=== PATIENT | male | born 1945 | race Caucasian/White ===

== ENCOUNTER → 2018-02-15 | Outpatient (CLI) | payer OTHER ==
[~2018-02-15] VITALS: Ht 185.4 cm; Wt 115.2 kg
[~2018-02-15] MED LIST: ASPIR 8181 MG PO; FLOMAX0.4 MG PO; LISINOPRIL5 MG PO; NEURONTIN 300300 M1 PO; TOPROL XL25 MG PO; VITAMIN B-121000 MCG PO
[2018-02-15 10:29] VITALS: BP 132/75
[2018-02-15 10:36] VITALS: BP 132/75
[2018-02-15 10:43] LABS: HEMATOCRIT 38.1 % (42.0-52.0); MCH 34.5 pg (26.0-34.0); MCHC 34.2 g/dL (28.0-37.0); MCV 100.9 fL (80.0-100.0); RBC 3.78 mil/uL (4.50-6.00); RDW 14.4 % (10.5-14.5); WBC 5.1 thou/uL (4.0-11.0)
[2018-02-15 10:52] LABS: CALCIUM 9.4 mg/dL (8.5-10.1); CREATININE 1.2 mg/dL (0.7-1.3); POTASSIUM 4.1 mmol/L (3.5-5.1)
--- NOTE | 2018-02-15 13:23 | EKG ---
[place] [address] [facility] [place] [address] ELECTROCARDIOGRAM REPORT Name: NEL QUIGLEY Room #: REG [facility]#: [id number] Admission: 02/15/18 Attend Phys: Fransico Lauren Discharge: Date of : 45 Report #: [id number] THIS REPORT FOR: //name// [facility] [place] [facility] Test Date: 2018-02-15 Test Time: 10:20:18 Pat Name: NEL QUIGLEY Department: Room: Gender: Force Variation Equipment Tender: Carmine GUZMÁN : 1945 Requested By: Fransico Lauren Order Number: [id number] MD: Alek Soni Measurements Intervals [place] Rate: 85 P: 38 [place]: 193 QRS: 39 QRSD: 84 T: 178 QT: 396 QTc: 471 Interpretive Statements Sinus rhythm Abnormal R-wave progression, early transition Repol abnrm, prob ischemia, anterolateral lds No previous ECG available for comparison Electronically Signed On 02-15-2018 13:23:32 CUSTOM LEATHER PRODUCTS MAKER by Alek Soni [email or web address] <ELECTRONICALLY SIGNED> By: Alek Soni MD 02/15/18 1323 1020 1020 Alek Soni MD /GOMEZ
--- NOTE | 2018-02-15 16:14 | CATHLAB ---
[facility] [place] [address] INVASIVE PROCEDURE REPORT Name: NEL QUIGLEY Room #: REG [facility] [id number] Admission: 02/15/18 Attend Phys: Fransico Kramer Discharge: Date of : 45 Date of Service: 02/15/18 1614 Report #: [id number] THIS REPORT FOR: //name// APPROVED REPORT Study performed: 02/15/2018 09:53:57 Patient Details Patient Status: Out-Patient Room #: The patient is a 72 year-old male Event Personnel Fransico Lauren Newscast Director, Levon Metzger Tharp, Cori RN RN, Debra Mares Monitor Procedures Performed Art Access - R femoral artery* 85975 Initial Mod Sed Same Phys/QHP Gr5y 984301 Left Heart Cath w/or w/o Coronaries [id number] [facility] Aortogram Abdominal Peripheral Angio 578788 Hemostasis with Manual pressure supervision of conscious sedation Indication Positive stress test, Chest pain Procedure Narrative The Right Groin^ was infiltrated with 1% Lidocaine subcutaneous anesthesia. A PINNACLE 4FR Sheath #[id number] sheath was inserted into the RFA^. Coronary angiography was performed using coronary diagnostic catheters. The right coronary system was accessed and visualized with a jr4 catheter. The left coronary system was accessed and visualized with a jl4 catheter. The left ventricle was accessed and visualized with a angle pig catheter. An aortogram of the abdominal aorta was performed. The patient tolerated the procedure well and there were no complications associated with the procedure. There was no hematoma. Fluoroscopic visualization demonstrated evidence of at least moderate epicardial coronary artery calcifications Intraoperative Conscious Sedation Versed 2 mg Fluoro Time: 4.23 minutes Dose: DAP 8016.60 cGycm2 870 mGy Coronary Angiography [facility] [address] [place] [address] INVASIVE PROCEDURE REPORT Name: NEL QUIGLEY Room #: [facility]#: [id number] Admission: 02/15/18 Attend Phys: Fransico Kramer Discharge: Date of : 45 Date of Service: 02/15/18 1614 Report #: [id number] The patient's coronary anatomy is right dominant. Diagnostic Cath Left Main Normal origin moderate to large caliber with luminal irregularities with no high-grade lesions noted. Bifurcates left anterior descending left circumflex coronary artery LAD Moderate caliber type II vessel which is calcified epicardial E proximally. It then continues tapering in the anterior interventricular sulcus terminating as a bifurcating vessel at the apex of the left ventricle. In its course is moderate to mild luminary irregularities noted. The moderate is in the distal third and is at a hinge point Diagonal 1 Small-caliber vessel without high-grade obstructive lesion Circumflex Moderate caliber vessel which gives rise to an early first marginal branch. It then continues on with his a rapid 50% taper and calcifications noted epicardial E. Does not appear to have flow-limiting qualities. The vessel then continues on in the AV groove giving rise to a smaller second marginal branch and then continues posteriorly giving rise to a posterolateral wall branch. Prior to the origin there is a small section that appears to have a dynamic obstruction consistent with a myocardial bridge superimposed on a mild to moderate plaque. Does not impede flow OM1 Small caliber vessel without significant high-grade lesions OM2 Small-caliber vessel of short length luminal irregularities noted OM3 Small to moderate caliber vessel with luminary irregularities but no high-grade lesions Right Coronary Large-caliber vessel of normal origin with significant ectasia noted. There is moderate multiple regions of narrowing with evidence of heavy epicardial calcifications gives rise to small marginal RV marginal branches and then proceeds posteriorly giving rise to a small posterior descending artery and terminating as a small caliber posterior lateral branch. Comparing to the non-ectatic region there is one spot that appears to be greater than 60% stenosis but under 75% stenosis. The remaining regions appear to be at 50-60% without flow-limiting R PDA Small-caliber vessel coursing the AV groove towards the apex free of high-grade disease RPLV Small-caliber vessel along the posterior oral inferolateral wall without significant stenosis noted the courses towards the apex Left Ventriculography Left Ventriculography was not performed. Abdominal aortogram was [facility] [address] [place] [address] INVASIVE PROCEDURE REPORT Name: NEL QUIGLEY [place] Room #: [facility]#: [id number] Admission: 02/15/18 Attend Phys: Fransico Kramer Discharge: Date of : 45 Date of Service: 02/15/18 1614 Report #: [id number] performed due to difficulty advancing the wire through the common iliacs. This demonstrated some irregularities in the lumen but no high-grade lesions. There was a region of eccentricity but was not significantly obstructing flow Hemodynamics The aortic pressure is 147/82 mmHg with a mean of 110 mmHg. The left ventricular pressure is 147/18 mmHg with a mean of mmHg. Conclusion 1. Coronary artery disease moderate two-vessel involving the proximal right coronary artery and proximal as well as small segment and distal circumflex 2. Abnormal urinalysis with mildly elevated left ventricular end-diastolic pressures Recommendations Cardiac Risk Reduction Program Aggressive Medical Therapy <ELECTRONICALLY SIGNED> By: Fransico Lauren MD 02/15/18 1614 1614 1614 Fransico Lauren MD /INF
--- NOTE | 2018-02-15 19:58 | H ---
[facility] [place] [address] HISTORY AND PHYSICAL Name: NEL QUIGLEY Room #: REG [facility]#: [id number] Admission: 02/15/18 Attend Phys: Fransico Lauren Discharge: Date of : 45 Report #: [id number] THIS REPORT FOR: //name// CC: Levon Fuller FAM unknown Fransico Lauren HISTORY OF PRESENT ILLNESS: This pleasant gentleman was seen in the office for preop assessment due to abnormal electrocardiogram and risk factors prior to surgery. He underwent noninvasive assessment demonstrating abnormal perfusion scan consistent and suspicious for inducible ischemia. Now presents for cardiac catheterization. PHYSICAL EXAMINATION: GENERAL: Well-developed, well-nourished white male, resting comfortably in no acute distress. VITAL SIGNS: Noted in the chart. HEENT: Normocephalic, atraumatic. Pupils are equal, round, reactive to light and accommodation. Extraocular muscles are intact. Sclerae and conjunctivae are anicteric. NECK: JVD is normal. Carotid upstrokes are bilaterally symmetrical. No bruits are heard. No thyromegaly. No lymphadenopathy. LUNGS: Clear to auscultation. No wheezes, rhonchi or crackles. No CVA tenderness. CARDIAC: Demonstrates a regular rhythm. Normal first and second heart sounds. No ventricular or atrial gallops, no rubs noted. No murmurs. No lifts or heaves, PMI normal. ABDOMEN: Soft, nontender, nondistended. Normal bowel sounds. EXTREMITIES: Without cyanosis, clubbing or edema. Distal pulses are intact. DTR symmetrical. NEUROLOGIC: Cranial nerves 2-12 are grossly normal and symmetrical. PSYCHIATRIC: Alert, oriented with normal affect. SKIN: Warm and dry. IMPRESSION: Abnormal perfusion scan with risk factors prior to surgery. Discussed invasive diagnostic studies. The patient wished to proceed after the risks, complications, alternatives to cardiac catheterization, percutaneous revascularization, conscious sedation were discussed. <ELECTRONICALLY SIGNED> By: Fransico Lauren MD 02/15/18 1958 1043 1111 Fransico Lauren MD /nt
== END | disposition home or self-care (01) ==
LOC: CATH 09:29
PROVIDERS: Internal Medicine
DX: I25.10 Atherosclerotic heart disease of native coronary artery without angina pectoris (principal); R82.90 Unspecified abnormal findings in urine; I11.0 Hypertensive heart disease with heart failure; I50.1 Left ventricular failure, unspecified; G47.33 Obstructive sleep apnea (adult) (pediatric); E78.5 Hyperlipidemia, unspecified; Z95.5 Presence of coronary angioplasty implant and graft; Z98.890 Other specified postprocedural states; Z79.899 Other long term (current) drug therapy; Z87.891 Personal history of nicotine dependence; Z88.0 Allergy status to penicillin; Z79.82 Long term (current) use of aspirin

== ENCOUNTER 2018-02-20 05:31 | Inpatient (IN) | payer OTHER ==
[2018-02-01 13:34] LABS: HEMATOCRIT 36.9 % (42.0-52.0); HEMOGLOBIN 12.6 gm/dL (14.0-18.0); MCH 34.6 pg (26.0-34.0); MCHC 34.1 g/dL (28.0-37.0); MCV 101.3 fL (80.0-100.0); RBC 3.64 mil/uL (4.50-6.00); RDW 14.7 % (10.5-14.5); WBC 5.1 thou/uL (4.0-11.0)
[2018-02-01 13:35] LABS: URINE BILIRUBIN NEGATIVE (Negative); URINE BLOOD NEGATIVE (Negative); URINE CLARITY CLEAR; URINE COLOR YELLOW; URINE GLUCOSE-RANDOM* NEGATIVE (Negative); URINE KETONES NEGATIVE (Negative); URINE LEUKOCYTES-REFLEX NEGATIVE (Negative); URINE NITRITE-REFLEX NEGATIVE (Negative); URINE PROTEIN (DIPSTICK) NEGATIVE (Negative); URINE SPECIFIC GRAVITY 1.025 (1.005-1.035); URINE UROBILINOGEN 0.2 E.U./dl (0.2-1.0)
[2018-02-01 13:38] LABS: ALBUMIN 3.7 g/dL (3.4-5.0); CALCIUM 8.6 mg/dL (8.5-10.1); CREATININE 1.2 mg/dL (0.7-1.3); POTASSIUM 4.4 mmol/L (3.5-5.1)
[2018-02-01 13:49] LABS: INR 1.1
[~2018-02-20] VITALS: Ht 185.4 cm; Wt 113.4 kg
[2018-02-20 07:05] VITALS: BP 132/64
[2018-02-20 10:44] VITALS: BP 124/67
--- NOTE | 2018-02-20 11:41 | NUR ---
SET PATIENTS HOME CPAP UP AT BEDSIDE AND LEFT EXTRA WATER
--- NOTE | 2018-02-20 13:42 | NUR ---
RECEIVED PT FORM SURGERY. A/O. DENIES PAIN AT THIS TIME. NO NOTED SOA. NO NV. DRESSING TO RIGHT KNEE CDI. HEMOVAC IN PLACE. WILL CONT. TO MONITOR.
--- NOTE | 2018-02-20 15:37 | NUR ---
PT ADMITTED RELATED TO TOTAL RIGHT KNEE REPLACEMENT. CM REVIEWED CHART AND SPOKE WITH CARE TEAM. CM MET WITH PAT BEDSIDE THIS DAY. PT IS A&O X4. CM ROLE INTRODUCED. PT INDICATED HE LIVES IN A HOUSE WITH HIS SPOUSE WITH 1 STEP TO ENTER AND NO STEPS INSIDE. 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 PT INDICATED HE HAD A 4WW AND WILL NEED A FWW FOR USE UPON DC. PT INQUIRED ABOUT A SHOWER CHAIR AND CM INDICATED WHERE PT COULD AQUIRE ONE. CM TO PROVIDE INFO. PT IS ESTABLISHED WITH OP PT HERE AT [facility]. CM NOTIFIED PP LIAISON AND SHE WILL DELIVER FEE PTD. CM TO FOLLOW INDICATED WITH DC PLANNING.
[2018-02-20 16:26] VITALS: BP 138/64
[2018-02-20 21:00] VITALS: BP 127/62
--- NOTE | 2018-02-20 23:30 | NUR ---
PT C/O PAIN ON HIS R KNEE, MANAGED WITH PO PAIN MED.CONT ON IVF ORDERED.DRSG ON HIS R KNEE C/D/I WITH HEMOVAC IN PLACE.URINAL AT BEDSIDE.CPAP AT HS.PT BREATING NORMAL AND UNLABORED.PT ABLE TO PULL HIMSELF UP IN BED.CALL LIGHT WITHIN REACH.
[2018-02-21 05:42] VITALS: BP 115/60
[2018-02-21 05:54] LABS: HEMATOCRIT 30.4 % (42.0-52.0); HEMOGLOBIN 10.3 gm/dL (14.0-18.0); MCH 34.4 pg (26.0-34.0); MCV 101.4 fL (80.0-100.0); PLATELET COUNT 125 thou/uL (150-400); RBC 2.99 mil/uL (4.50-6.00); RDW 14.3 % (10.5-14.5); WBC 13.3 thou/uL (4.0-11.0)
[2018-02-21 06:01] LABS: CALCIUM 7.9 mg/dL (8.5-10.1); CREATININE 1.3 mg/dL (0.7-1.3); MAGNESIUM 1.7 mg/dL (1.8-2.4); POTASSIUM 4.5 mmol/L (3.5-5.1)
[2018-02-21 06:31] LABS: ABSOLUTE NEUTROPHILS 10.1 thou/uL (1.4-8.2)
[2018-02-21 06:32] LABS: ANISOCYTOSIS 2+; MACROCYTES 2+
[2018-02-21 06:33] LABS: PLATELET ESTIMATE DECREASED
[2018-02-21 07:06] VITALS: BP 118/59
--- NOTE | 2018-02-21 09:08 | NUR ---
ASSUMED CARE OF PT AT 0700. ASSESSMENT COMPLETED AND CHARTED. A&0,X4. HARD OF HEARING NOTED. PT SITTING IN BED, NO DISTRESS NOTED. C/O RIGHT KNEE PAIN POST OP, PAIN MEDS GIVEN ORDERED. NO OTHER CONCERNS AT THIS TIME. NO N/V/D. NO BM SINCE SURGERY, MEDS GIVEN ORDERED TO PROMOTE BM. NO PROBLEMS VOIDING. SURGICAL MAYNOR DRESSING IN PLACE RIGHT KNEE, HEMOVAC DRAIN IN PLACE - 575 SANGINOUS DRAINAGE NOTED. CALLED PHYSICIAN, INSTRUCTED TO NOTE DRAINAGE AMOUNT AND D/C DRAIN ORDERED. WILL CONTINUE TO MONITOR.
--- NOTE | 2018-02-21 14:00 | NUR ---
HEMOVAC DRAIN D/C ORDERED. 75 ML SANGINOUS DRAINAGE NOTED. PT TOLERATED PROCEDURE WELL. PT RATES RIGHT KNEE PAIN 3/10, REFUSES PAIN MEDS AT THIS TIMES. DENIES N/V. REPORT GIVEN TO S.S NURSE. PT TRANSFERED IN STABLE CONDITION VIA WHEELCHAIR WITH BELONGINGS - HOME CPAP MACHINE, WALKER X2, BRIEFCASE, CLOTHES, AND CELL PHONE.
[2018-02-21 15:00] VITALS: BP 123/63
--- NOTE | 2018-02-21 17:39 | O ---
[facility] [place] [address] OPERATIVE REPORT Name: NEL QUIGLEY Room #: 222-P ADM IN M.R.#: [id number] Admission: 02/20/18 Attend Phys: Levon Fuller MD Discharge: Date of : 45 Report #: [id number] THIS REPORT FOR: //name// CC: Levon WEBB DATE OF SERVICE: 02/20/2018 PREOPERATIVE DIAGNOSIS: End-stage degenerative osteoarthritis, right knee. POSTOPERATIVE DIAGNOSIS: End-stage degenerative osteoarthritis, right knee. PROCEDURE: Right total knee arthroplasty. SURGEON: Levon Fuller MD INDICATIONS: This 72-year-old gentleman is moderately heavy and deconditioned. He has moderate degenerative osteoarthritis of both knees. There is mild varus malalignment and significant joint space narrowing with mild spurring in all 3 compartments. He is most symptomatic on the right side. He has elected to go ahead with right total knee arthroplasty at this time. DESCRIPTION OF PROCEDURE: The patient was taken to the Operating Room where he was placed under general anesthesia. A femoral nerve block was also applied. Prophylactic intravenous antibiotics were administered. The right knee and leg were meticulously prepped and draped and a thigh tourniquet inflated to 300 mmHg. An anterior longitudinal skin incision was made and carried through the medial retinaculum, reflecting the patella laterally. Moderate degenerative change in all 3 compartments was noted. The Becker and Nephew knee system was utilized. The cuts were made using intramedullary guides on both the femur and the tibia. The femur seemed best suited for a size 6 femoral component. The tibia was also best suited for a size 6 tibial component. A trial reduction was performed and a 10 mm polyethylene insert resulted in full knee extension and flexion beyond 130 degrees with satisfactory stability on varus and valgus stress. Alignment appeared to be acceptable. The patellar surface was resected and a 35 mm patellar button fit nicely. Appropriate anchor holes were created. The surfaces were thoroughly irrigated and dried. The intramedullary canal was blocked with a bone block on both the femoral and tibial sides. Methyl methacrylate cement was mixed and injected into the porous surface of the tibia. The Becker and Nephew size 6 [place] II right tibial baseplate was then inserted. This was impacted into position and seated nicely. Excess cement was removed around its margin. A 10 mm Legion polyethylene insert was then inserted. This was snapped into position and seated nicely and appeared to be secure. The press-fit noncemented size 6 right cruciate retaining Legion femoral component was then inserted on to the distal femur and impacted into position. It seated nicely and appeared to be secure. The Chey[place] II patellar [address] [address] OPERATIVE REPORT Name: NEL QUIGLEY Room #: 222-P [facility] IN M.R.#: [id number] Admission: 02/20/18 Attend Phys: Levon Fuller MD Discharge: Date of : 45 Report #: [id number] component using a 35 mm size was secured to the patella using appropriate anchor holes and cement. A patellar clamp was utilized until the cement had hardened. All excess cement was removed from around the margin. Once the cement was secured, range of motion, alignment and stability were once again assessed and felt to be satisfactory. The knee demonstrated full knee extension and flexion well beyond 130 degrees with good stability on varus and valgus stress. The patella tracked nicely and appeared to be stable. At this point, the tourniquet was deflated after a total tourniquet time of 55 minutes. A single Hemovac was left in the wound exiting through a separate stab incision. The fascia was then closed with multiple #1 Vicryl sutures. The subcutaneous tissues were closed with 0 Monocryl and the skin was closed with skin sarkis. A sterile dressing was applied. The patient was awakened and returned to the Recovery Room in good condition. <ELECTRONICALLY SIGNED> By: Levon Fuller MD 02/21/18 1739 0902 0947 Levon Fuller MD /nt
[2018-02-21 20:39] VITALS: BP 123/63
--- NOTE | 2018-02-22 03:33 | NUR ---
Pt A/OX4. Up with AX1/RW,WBAT to RLE.C/o pain LOP 07/24,medicated with [place]/Percocet per EMAR with LOP reported @ 03/26. Ice provided as well.Voiding per urinal,light yellow clear urine. Declined to take miralax at HS had a BM in the evening. VSS. Michael rodriguez on refused SCD's. Resting quietly with CPAP in place no distress noted will continue to monitor pt.
[2018-02-22 06:48] LABS: HEMATOCRIT 31.1 % (42.0-52.0); HEMOGLOBIN 10.5 gm/dL (14.0-18.0); MCH 34.1 pg (26.0-34.0); MCHC 33.6 g/dL (28.0-37.0); MCV 101.6 fL (80.0-100.0); RBC 3.06 mil/uL (4.50-6.00); RDW 14.5 % (10.5-14.5); WBC 9.3 thou/uL (4.0-11.0)
[2018-02-22 08:33] VITALS: BP 136/74
[2018-02-22 17:17] VITALS: BP 126/94
--- NOTE | 2018-02-22 19:57 | NUR ---
ASSUMED CARE OF PATIENT AT 0715, PATIENT ALERT AND ORIENTED X 4. PATIENT UP WITH 1-2 ASSIST WITH WALKER. PATIENT C/O PAIN WITH RIGHT KNEE, PATIENT RECEIVED HYDROCODONE 1 TABLET THIS AM, AND PATIENT HAD OXYCODONE X 2 THIS SHIFT WITH GOOD RELIEF. PATIENT HAS RIGHT KNEE INCISON WITH MAYNOR DRESSING IN PLACE, PATIENT ALSO USES ICE PACK FOR PAIN RELIEF. PATIENT WORKED WITH PHYSICAL THERAPY/STEVE X 2. PATIENT HAD 2 LARGE BM'S THIS SHIFT. PATIENT HAS LEFT FOREARM IV IN PLACEM AND IS PATENT. WILL CONTINUE TO MONITOR.
[2018-02-22 21:00] VITALS: BP 126/94
--- NOTE | 2018-02-23 04:11 | NUR ---
Pt A/OX4,[place] and wears FAIR.Up with min assist of / from chair to bed. C/o pain to Right knee LOP 3/10,medicated with pain meds per EMAR with relief reported. Ice packs provided as well. VSS.MAYNOR dsg on right knee C/D/I. Resting quietly eyes closed CPAP in place with no distress noted. Held HS Miralax per pt request had 2 BM's yesterday. PIV patent on left forearm. Fall precautions implemented and call light within reach. Will continue to monitor pt.
[2018-02-23 06:59] LABS: HEMOGLOBIN 10.4 gm/dL (14.0-18.0); MCH 35.1 pg (26.0-34.0); MCHC 34.5 g/dL (28.0-37.0); MCV 101.9 fL (80.0-100.0); RBC 2.95 mil/uL (4.50-6.00); RDW 14.6 % (10.5-14.5); WBC 8.1 thou/uL (4.0-11.0)
[2018-02-23 07:45] VITALS: BP 124/63
--- NOTE | 2018-02-23 08:07 | D ---
[facility] [place] [address] DISCHARGE SUMMARY Name: NEL QUIGLEY Room #: 222-P [facility] IN ..#: [id number] Admission: 02/20/18 Attend Phys: Levon Fuller MD Discharge: Date of : 45 Report #: [id number] THIS REPORT FOR: //name// CC: Levon WEBB DATE OF SERVICE: 02/23/2018 FINAL DIAGNOSIS: End-stage degenerative osteoarthritis, right knee. OPERATIVE PROCEDURE: Right total knee arthroplasty. HISTORY OF PRESENT ILLNESS: This 72-year-old heavy gentleman, complains of progressive right knee pain. Clinical exam and x-rays confirm severe end-stage degenerative osteoarthritis. He has tried conservative measure without much benefit. He has elected to go ahead with right total knee arthroplasty. HOSPITAL COURSE: The patient was admitted and taken to the operating room on 02/20. He underwent right total knee arthroplasty, which he tolerated well. Postoperatively, his course was largely unremarkable. He is able to advance with physical therapy, resuming independent ambulation using a walker for safety. The right knee dressing seems to be dry and stable. He has been able to resume a regular diet. He has resumed his regular routine preoperative medications. He is working with therapy and has achieved satisfactory safety with independent ambulation. I feel he is ready for hospital discharge. DISCHARGE MEDICATIONS: Include aspirin 81 mg daily, gabapentin 300 mg 3 times daily, Flomax 0.4 mg daily, lisinopril 5 mg daily, vitamin B12 of 1000 mcg daily, metoprolol 25 mg daily, Xarelto 10 mg daily, hydrocodone 10 mg every 6 hours as needed. He is instructed to call if any problems or questions. He will continue with careful activity using his walker and family assistance at home. I will plan to see him in the office next week, and he will begin outpatient therapy. We will plan to see him again the following week for suture removal. <ELECTRONICALLY SIGNED> By: Levon Fuller MD 02/23/18 0807 0741 0758 Levon Fuller MD /nt
--- NOTE | 2018-02-23 12:25 | NUR ---
PATIENT CARE WAS ASSUMED AT 0715.PATIENT IS ALERT AND ORIENTED X4.PATIENT HAS PAIN 1/10 ON PAIN SCALE.PATIENT DOESN'T WANT MEDICATION AT THIS TIME.PATIENT HAS ICE PACKS AT BEDSIDE.TEDS ARE IN PLACE.PT HAS SCDS BUT ARE NOT ON AT THIS TIME.PATIENT IS SITTING IN CHAIR READY FOR BREAKFAST.IV IS INTACT AND SALINE LOCKED. PT IS WORKING WITH PT/OT.CALL LIGHT, PHONE, AND PERSONAL BELONGINGS ARE WITHIN REACH.WILL CONTINUE TO MONITOR PATIENT.
--- NOTE | 2018-02-23 12:55 | NUR ---
DISCHARGE PLANNING. POST ACUTE CARE RECOMMENDED AT DISCHARGE. REFERRAL FAXED TO [facility]IA[facility]. CALL PLACED TO NOTIFY OF REFERRAL FAXED AND PATIENTS DISCHARGE NEEDS. [facility] TO REVIEW CLINICAL INFORMATION AND CONTACT CM ONCE COMPLETE. FOLLOWING TO ASSIST.
--- NOTE | 2018-02-23 13:29 | NUR ---
Following for d/c planning needs. Pt may need SNF on d/c from hospital. Spoke with pt and gave him list of half-way facilities. He wants to go to [facility] as his first choice. Second choice would be [facility]. Asked environmental planner to make referral.
[2018-02-23 18:31] VITALS: BP 118/53
--- NOTE | 2018-02-23 21:55 | NUR ---
pt presents with a plesant affect,alert and oriented x 4 ,needs one person assist with adls ,uses a walker and a gait belt for transfers.continent of bowel and bladder,last reported bm is today,pain reported on the surgical right knee and has uilized pain meds. pt on noc cpap and with continous pulse oximetry monitoring.wears marisela hose,no complains of sob at this time.
--- NOTE | 2018-02-23 23:36 | EKG ---
[place] [address] [facility] [place] [address] ELECTROCARDIOGRAM REPORT Name: NEL QUIGLEY Room #: 222-P ADM IN M.R.#: [id number] Admission: 02/20/18 Attend Phys: Levon Fuller MD Discharge: Date of : 45 Report #: [id number] THIS REPORT FOR: //name// [facility] Test Date: 2018-02-23 Test Time: 19:00:35 Pat Name: NEL QUIGLEY Department: Room: 222 P Gender: M Nuclear Supervising Operator: LONNIE : 1945 Requested By: Rasta Qiu Order Number: [id number] MD: Alek Soni Measurements Intervals [place] Rate: 96 P: 39 OR: 187 QRS: 34 QRSD: 97 T: 191 QT: 343 QTc: 434 Interpretive Statements Sinus rhythm Abnormal R-wave progression, early transition Abnormal T, consider ischemia, diffuse leads Baseline wander in lead(s) II,III,aVR,aVL,aVF Compared to ECG 02/15/2018 10:20:18 T-wave abnormality now present Early repolarization no longer present Possible ischemia still present Electronically Signed On 02-23-2018 23:36:23 BANDAGE WINDING MACHINE OPERATOR by Alek Soni [email or web address] <ELECTRONICALLY SIGNED> By: Alek Soni MD 02/23/18 2336 99 99 Alek Soni MD /EPI
[2018-02-24 09:05] LABS: HEMATOCRIT 31.5 % (42.0-52.0); HEMOGLOBIN 10.9 gm/dL (14.0-18.0); MCH 35.1 pg (26.0-34.0); MCHC 34.7 g/dL (28.0-37.0); MCV 101.2 fL (80.0-100.0); RBC 3.11 mil/uL (4.50-6.00); RDW 14.8 % (10.5-14.5)
[2018-02-24 09:12] LABS: CALCIUM 8.8 mg/dL (8.5-10.1); CREATININE 1.1 mg/dL (0.7-1.3); MAGNESIUM 2.3 mg/dL (1.8-2.4); POTASSIUM 4.2 mmol/L (3.5-5.1)
--- NOTE | 2018-02-24 15:29 | NUR ---
PATIENT WAS D/C TO [facility]UR[facility].PATIENT HAS PERSONAL BELONGINGS.PAPERWORK WAS GIVEN TO TRANSPORTATION.IV WAS TAKEN OUT AND PATIENT WAS DRESSED.PT WAS PICKED UP VIA [facility].REPORT WAS CALLED TO NURSE AT [facility].
== END 2018-02-24 15:00 | DRG 469 ==
LOC: PRE → SICU 05:31 → TBA 05:31 → 4E 05:31 → PRE 05:56 → 4E 10:39 → PRE 11:07 → ENTRNSPT 02-21 14:46 → EDTRNSPTSTS 02-21 14:52 → SICU 02-21 15:04
PROVIDERS: Internal Medicine; Nurse Practitioner; ADMIT Orthopaedic Surgery
PROC: 0SRC0J9 Replacement of Right Knee Joint with Synthetic Substitute, Cemented, Open Approach (ICD-10-PCS; principal; 2018-02-20)
DX: M17.11 Unilateral primary osteoarthritis, right knee (principal); E43 Unspecified severe protein-calorie malnutrition; I10 Essential (primary) hypertension; E78.5 Hyperlipidemia, unspecified; N40.0 Benign prostatic hyperplasia without lower urinary tract symptoms; G47.33 Obstructive sleep apnea (adult) (pediatric); Z79.82 Long term (current) use of aspirin; Z79.899 Other long term (current) drug therapy; Z87.891 Personal history of nicotine dependence; Z88.0 Allergy status to penicillin
CPT/HCPCS: 10783; 15002; 50010; 50101; 50415; 50954; 51130; 51225; 51412; 53364; 56525; 57095; 62110; 62900; 70005

== ENCOUNTER → 2019-05-21 | Outpatient (CLI) | payer OTHER ==
[~2019-05-21] MED LIST changes: +REPATHA SU140 MG/1 M SUBQ
== END ==
LOC: SJCVC 10:11
PROVIDERS: ATTEND Internal Medicine
DX: E78.5 Hyperlipidemia, unspecified (principal)

== ENCOUNTER → 2019-07-31 | Outpatient (CLI) | payer OTHER | LOC: SJCVC 09:21 | PROVIDERS: ATTEND Internal Medicine | DX: I25.10 Atherosclerotic heart disease of native coronary artery without angina pectoris (principal); I10 Essential (primary) hypertension; E78.5 Hyperlipidemia, unspecified; E11.9 Type 2 diabetes mellitus without complications; M25.551 Pain in right hip; M25.552 Pain in left hip; M79.604 Pain in right leg; M79.605 Pain in left leg; Z78.9 Other specified health status; Z79.82 Long term (current) use of aspirin; Z79.899 Other long term (current) drug therapy; Z87.891 Personal history of nicotine dependence ==

== ENCOUNTER → 2019-08-03 | Outpatient (CLI) | payer OTHER | LOC: SJCVCIMAG 08:11 | PROVIDERS: ATTEND Internal Medicine | DX: I70.203 Unspecified atherosclerosis of native arteries of extremities, bilateral legs (principal); I10 Essential (primary) hypertension; E78.5 Hyperlipidemia, unspecified; F17.200 Nicotine dependence, unspecified, uncomplicated; Z79.82 Long term (current) use of aspirin; Z79.899 Other long term (current) drug therapy ==

== ENCOUNTER 2019-08-08 10:47 | Outpatient (CLI) | payer OTHER ==
[~2019-08-08] VITALS: Ht 185.4 cm; Wt 118.4 kg
[~2019-08-08 10:47] MED LIST changes: -REPATHA SU140 MG/1 M SUBQ
[2019-08-08 11:52] VITALS: BP 138/63
[2019-08-08] MEDS ORDERED: REPATHA SU140 MG/1 M SUBQ (12:07)
[2019-08-08 12:19] LABS: HEMATOCRIT 36.7 % (42.0-52.0); HEMOGLOBIN 12.5 gm/dL (14.0-18.0); MCV 103.1 fL (80.0-100.0); RBC 3.56 mil/uL (4.50-6.00); RDW 14.5 % (10.5-14.5); WBC 4.2 thou/uL (4.0-11.0)
[2019-08-08 12:28] LABS: CALCIUM 9.5 mg/dL (8.5-10.1); CREATININE 1.1 mg/dL (0.7-1.3); POTASSIUM 4.2 mmol/L (3.5-5.1)
[2019-08-08 18:26] VITALS: BP 129/63
[2019-08-08 20:24] VITALS: BP 129/63
--- NOTE | 2019-08-08 21:21 | NUR ---
DISCHARGE.: PATIENT DISCHARGED 2109, S/P CATH/ABDOMINAL AORTOGRAM. PT OFF BEDREST AT 2029. AO X4. VSS. DENIES CHEST PAIN, DENIES NAUSEA, VOMITING OR DIARRHEA. PULSES 2/1. DENIES NUMBNESS OR PAIN IN THE LOWER EXTREMITIES. GROIN SITES (R/L) CLEAR DRY AND INTACT. DR. BARTH NOTIFIED TO CLARIFY DISCHARGE ORDERS. PHYSICIAN UNABLE TO COMPLETE FULL ADMISSION ORDERS SINCE PATIENT WAS OBSERVATIONAL. WHEN NOTIFIED, STATED, " JUST GET HIM OUT OF HERE IS PATIENT IS STABLE." COMPLETED SECTIONS OF ADMISSION PRINTED, DISCHARGE SUMMARY GIVEN TO PATIENT WITH DISCHARGE INSTRACTIONS. NO NEW ORDERS NOTED ON PATIENT'S DICHARGE SUMMARY. ALL LISTED HOME MEDICATION VERIFIED BY PATIENT TO BE CURRENT. PT DISCHARGED HOME, PRIVATE VEHICLE WITH SPOUSE AT 2118. PT DISCHARGED IN STABLE CONDITION.
== END 2019-08-08 21:19 | disposition home or self-care (01) ==
LOC: CATH 10:47 → 2N 18:25 → CATH 21:19
PROVIDERS: ATTEND Nuclear Medicine Nuclear Cardiology
DX: I70.213 Atherosclerosis of native arteries of extremities with intermittent claudication, bilateral legs (principal); I70.1 Atherosclerosis of renal artery; I10 Essential (primary) hypertension; I25.10 Atherosclerotic heart disease of native coronary artery without angina pectoris; E78.5 Hyperlipidemia, unspecified; G47.30 Sleep apnea, unspecified; Z98.890 Other specified postprocedural states; Z79.899 Other long term (current) drug therapy; Z88.0 Allergy status to penicillin
CPT/HCPCS: 10081

== ENCOUNTER → 2019-09-26 | Outpatient (CLI) | payer OTHER ==
[~2019-09-26] MED LIST changes: +REPATHA SU140 MG/1 M SUBQ
== END ==
LOC: SJCVCIMAG 08-06 10:04
PROVIDERS: ATTEND Nuclear Medicine Nuclear Cardiology
DX: I70.203 Unspecified atherosclerosis of native arteries of extremities, bilateral legs (principal); I65.23 Occlusion and stenosis of bilateral carotid arteries

== ENCOUNTER → 2019-10-02 | Outpatient (CLI) | payer OTHER | LOC: SJCVC 11:03 | PROVIDERS: ATTEND Nuclear Medicine Nuclear Cardiology | DX: I73.9 Peripheral vascular disease, unspecified (principal); I10 Essential (primary) hypertension; E78.00 Pure hypercholesterolemia, unspecified; F17.200 Nicotine dependence, unspecified, uncomplicated; E78.5 Hyperlipidemia, unspecified; Z79.82 Long term (current) use of aspirin; Z79.899 Other long term (current) drug therapy; Z95.828 Presence of other vascular implants and grafts ==

== ENCOUNTER → 2020-02-18 | Outpatient (CLI) | payer OTHER | LOC: SJCVC 14:46 | PROVIDERS: ATTEND Internal Medicine | DX: R94.31 Abnormal electrocardiogram [ECG] [EKG] (principal); I25.10 Atherosclerotic heart disease of native coronary artery without angina pectoris; E11.51 Type 2 diabetes mellitus with diabetic peripheral angiopathy without gangrene; E78.5 Hyperlipidemia, unspecified; I10 Essential (primary) hypertension; Z79.82 Long term (current) use of aspirin; Z79.899 Other long term (current) drug therapy; Z79.84 Long term (current) use of oral hypoglycemic drugs; Z88.0 Allergy status to penicillin; Z88.8 Allergy status to other drugs, medicaments and biological substances ==

== ENCOUNTER → 2020-04-01 | Outpatient (CLI) | payer OTHER | LOC: SJCVCIMAG 08:19 | PROVIDERS: ATTEND Nuclear Medicine Nuclear Cardiology | DX: I65.23 Occlusion and stenosis of bilateral carotid arteries (principal); I70.203 Unspecified atherosclerosis of native arteries of extremities, bilateral legs; I77.9 Disorder of arteries and arterioles, unspecified; E78.00 Pure hypercholesterolemia, unspecified; I10 Essential (primary) hypertension; F17.200 Nicotine dependence, unspecified, uncomplicated; Z90.49 Acquired absence of other specified parts of digestive tract; Z88.0 Allergy status to penicillin; Z88.8 Allergy status to other drugs, medicaments and biological substances; Z79.82 Long term (current) use of aspirin; Z79.899 Other long term (current) drug therapy ==

== ENCOUNTER → 2020-08-13 | Outpatient (CLI) | payer OTHER | LOC: SJCVCIMAG 09:07 | PROVIDERS: ATTEND Internal Medicine | DX: I07.1 Rheumatic tricuspid insufficiency (principal); I73.9 Peripheral vascular disease, unspecified; I10 Essential (primary) hypertension; E78.00 Pure hypercholesterolemia, unspecified; I77.9 Disorder of arteries and arterioles, unspecified; I25.10 Atherosclerotic heart disease of native coronary artery without angina pectoris; Z79.82 Long term (current) use of aspirin; Z79.899 Other long term (current) drug therapy; Z87.891 Personal history of nicotine dependence ==

== ENCOUNTER → 2020-11-21 | Outpatient (CLI) | payer OTHER | LOC: SJCVCIMAG 10-21 08:57 | PROVIDERS: ATTEND Nuclear Medicine Nuclear Cardiology | DX: I65.23 Occlusion and stenosis of bilateral carotid arteries (principal); M79.604 Pain in right leg; M79.605 Pain in left leg; I25.10 Atherosclerotic heart disease of native coronary artery without angina pectoris; I10 Essential (primary) hypertension; E78.00 Pure hypercholesterolemia, unspecified; E78.5 Hyperlipidemia, unspecified; Z88.0 Allergy status to penicillin; Z88.8 Allergy status to other drugs, medicaments and biological substances; Z79.82 Long term (current) use of aspirin; Z79.84 Long term (current) use of oral hypoglycemic drugs; Z79.899 Other long term (current) drug therapy; Z87.891 Personal history of nicotine dependence ==

== ENCOUNTER → 2020-11-26 | Outpatient (CLI) | payer OTHER | LOC: SJCVC 10:58 | PROVIDERS: ATTEND Nuclear Medicine Nuclear Cardiology | DX: I73.9 Peripheral vascular disease, unspecified (principal); I77.9 Disorder of arteries and arterioles, unspecified; I10 Essential (primary) hypertension; E78.00 Pure hypercholesterolemia, unspecified; F17.200 Nicotine dependence, unspecified, uncomplicated; I65.23 Occlusion and stenosis of bilateral carotid arteries; I25.10 Atherosclerotic heart disease of native coronary artery without angina pectoris; E78.5 Hyperlipidemia, unspecified; Z79.82 Long term (current) use of aspirin; Z79.899 Other long term (current) drug therapy; Z88.0 Allergy status to penicillin; Z88.8 Allergy status to other drugs, medicaments and biological substances ==

== ENCOUNTER → 2021-01-14 | Outpatient (CLI) | payer OTHER | LOC: SJCVC 16:07 | PROVIDERS: ATTEND Nuclear Medicine Nuclear Cardiology | DX: I73.9 Peripheral vascular disease, unspecified (principal); I77.9 Disorder of arteries and arterioles, unspecified; I10 Essential (primary) hypertension; E78.00 Pure hypercholesterolemia, unspecified; I65.29 Occlusion and stenosis of unspecified carotid artery; I25.10 Atherosclerotic heart disease of native coronary artery without angina pectoris; E78.5 Hyperlipidemia, unspecified; Z87.891 Personal history of nicotine dependence; Z79.84 Long term (current) use of oral hypoglycemic drugs; Z79.899 Other long term (current) drug therapy; Z88.0 Allergy status to penicillin; Z88.8 Allergy status to other drugs, medicaments and biological substances ==